=== PATIENT | male | born 1965 | race African-American/Black ===

== ENCOUNTER 2017-11-16 07:39 | Emergency (ER) | payer OTHER ==
[~2017-11-16] VITALS: Ht 185.4 cm; Wt 80.7 kg
[2017-11-16 07:40] VITALS: BP 143/85
== END 2017-11-16 08:33 | disposition home or self-care (01) ==
LOC: ED 08:27
DX: K02.9 Dental caries, unspecified (principal)
CPT/HCPCS: 99283